=== PATIENT | male | born 1955 | race Caucasian/White ===

== ENCOUNTER 2016-07-17 00:03 | Inpatient (IN) | payer BC, MEDICARE, OTHER, SELFPAY ==
[~2016-07-17] VITALS: Ht 193 cm; Wt 90.0 kg
[2016-07-17] MEDS ORDERED: ONDANSETRON 2MG/ML, 2ML IVPush ONE (00:30)
[2016-07-17] MEDS ORDERED: PLEASE ENTER ALLERGIES MC SCH ×2 (01:00)
[2016-07-17] MEDS ORDERED: MORPHINE SULFATE 4 MG/ML, 1ML ONE ×2 (01:00→01:22)
[2016-07-17] MEDS ORDERED: ONDANSETRON 2MG/ML, 2ML ONE ×2 (01:00→15:36)
[2016-07-17] MEDS: MORPHINE SULFATE 4 MG/ML, 1ML IVPush PRN ×2 (01:02→01:26)
[2016-07-17 01:42] LABS: BLOOD UREA NITROGEN 5 mg/dL (7-18)
[2016-07-17] MEDS ORDERED: HYDROmorphone 1 MG/ML, 1ML IV ONE (02:00)
[2016-07-17] MEDS ORDERED: HYDROmorphone 1 MG/ML, 1ML ONE ×3 (02:00→13:57)
[2016-07-17] MEDS ORDERED: DULO30CA2 PO (02:09)
[2016-07-17] MEDS ORDERED: OXYC15TA75 PO (02:09)
[2016-07-17] MEDS ORDERED: OXYC30TA66 PO (02:09)
[2016-07-17] MEDS ORDERED: METO25TA35 PO (02:09)
[2016-07-17] MEDS ORDERED: ZOLP-413 PO (02:09)
[2016-07-17] MEDS ORDERED: LORazepam 2 MG/ML, 1ML IVPush PRN (03:30)
[2016-07-17] MEDS ORDERED: ONDANSETRON 2MG/ML, 2ML IVPush PRN ×2 (03:30→13:30)
[2016-07-17] MEDS ORDERED: OXYcodone IR 5MG TABLET PO PRN (03:30)
[2016-07-17] MEDS: morphine SULFATE 10 MG/ML, 1ML IVPush PRN ×6 (03:56→18:22)
[2016-07-17] MEDS: SODIUM CHLORIDE 0.9% 1,000 ML IV SCH ×3 (04:25→21:31)
[2016-07-17] MEDS: POTASSIUM CHLORIDE 20 MEQ, MAGNESIUM SULFATE 2 GM, THIAMINE 100 MG, MVI ADULT 10 ML, FO... IV SCH ×2 (04:25→14:44)
[2016-07-17 04:27] VITALS: BP 134/89
[2016-07-17] MEDS: FAMOTIDINE 20 MG/2 ML IVPush SCH ×2 (08:08→23:02)
[2016-07-17] MEDS: METOPROLOL TARTRATE 25 MG TABLET PO SCH ×2 (08:08→23:02)
[2016-07-17] MEDS: DULOXETINE 30 MG CAPSULE.DR PO SCH (08:08)
[2016-07-17] MEDS: OxyconTIN ER 10 MG TAB.ER PO SCH ×2 (08:08→21:23)
[2016-07-17 08:10] VITALS: BP 133/83
[2016-07-17] MEDS ORDERED: FENTANYL PF 250 MCG/5ML ONE (12:39)
[2016-07-17] MEDS ORDERED: FENTANYL PF 100 MCG/2ML ONE ×2 (13:25→14:16)
[2016-07-17] MEDS ORDERED: OXYcodone 5 MG/5 ML ORAL.SOL UDC ONE (13:25)
[2016-07-17] MEDS ORDERED: LORazepam 2 MG/ML, 1ML ONE (13:26)
[2016-07-17] MEDS: FENTANYL PF 100 MCG/2ML IV PRN ×4 (13:28→14:20)
[2016-07-17] MEDS ORDERED: PROMETHAZINE 25 MG/ML, 1ML IV PRN (13:30)
[2016-07-17] MEDS ORDERED: MEPERIDINE/PF 25MG/0.5ML IVPush PRN (13:30)
[2016-07-17] MEDS ORDERED: hydrALAzine 20 MG/ML, 1ML IV PRN (13:30)
[2016-07-17] MEDS ORDERED: OXYcodone 5 MG/5 ML ORAL.SOL UDC PO PRN (13:30)
[2016-07-17] MEDS ORDERED: LABETALOL 5MG/ML, 20ML IV PRN (13:30)
[2016-07-17] MEDS: HYDROmorphone 1 MG/ML, 1ML IV PRN ×4 (13:36→14:10)
[2016-07-17 14:45] VITALS: BP 142/77
[2016-07-17] MEDS ORDERED: ROCURONIUM 10 MG/ML ONE (15:36)
[2016-07-17] MEDS ORDERED: PROPOFOL 10 MG/ML, 20ML ONE (15:36)
[2016-07-17] MEDS ORDERED: DEXAMETHASONE 4 MG/ML, 1ML ONE (15:36)
[2016-07-17] MEDS ORDERED: SUCCINYLCHOLINE 20 MG/ML, 10ML ONE (15:36)
[2016-07-17] MEDS ORDERED: CEFAZOLIN 1,000 MG ONE (15:36)
[2016-07-17] MEDS ORDERED: ONDANSETRON 2MG/ML, 2ML IV PRN (19:30)
[2016-07-17] MEDS ORDERED: OXYcodone/APAP 5/325MG TABLET PO PRN (19:30)
[2016-07-17] MEDS ORDERED: HYDROcodone/APAP 7.5-325MG/15ML UDC PO PRN (19:30)
[2016-07-17] MEDS ORDERED: HYDROmorphone 1 MG/ML, 1ML IV PRN (19:30)
[2016-07-17] MEDS: KETOROLAC 30 MG/1 ML IV SCH (19:49)
[2016-07-17] MEDS ORDERED: ZOLPIDEM 5MG TABLET PO PRN (20:00)
[2016-07-17 20:09] VITALS: BP 131/91
[2016-07-17] MEDS: CEFAZOLIN PMX 2GM/50ML 50 ML IVPB SCH (20:27)
[2016-07-17] MEDS: SODIUM CHLORIDE FLUSH 10ML SYR IVF SCH (21:00)
[2016-07-17] MEDS: DOCUSATE 100 MG CAPSULE PO SCH (21:23)
[2016-07-18 01:43] VITALS: BP 103/58
[2016-07-18] MEDS: KETOROLAC 30 MG/1 ML IV SCH ×2 (03:24→11:32)
[2016-07-18] MEDS: CEFAZOLIN PMX 2GM/50ML 50 ML IVPB SCH (04:32)
[2016-07-18 05:24] LABS: BLOOD UREA NITROGEN 9 mg/dL (7-18)
[2016-07-18] MEDS ORDERED: ENOXAPARIN 40 MG/0.4 ML SQ SCH (06:00)
[2016-07-18 07:35] VITALS: BP 110/74
[2016-07-18] MEDS: METOPROLOL TARTRATE 25 MG TABLET PO SCH (08:38)
[2016-07-18] MEDS: FAMOTIDINE 20 MG/2 ML IVPush SCH (08:38)
[2016-07-18] MEDS: OxyconTIN ER 10 MG TAB.ER PO SCH (08:38)
[2016-07-18] MEDS: DULOXETINE 30 MG CAPSULE.DR PO SCH (08:38)
[2016-07-18] MEDS: DOCUSATE 100 MG CAPSULE PO SCH (08:42)
[2016-07-18] MEDS: SODIUM CHLORIDE FLUSH 10ML SYR IVF SCH (08:43)
[2016-07-18] MEDS ORDERED: ERGOCALCIFEROL 50,000 UNIT CAPSULE PO SCH (11:00)
[2016-07-18] MEDS ORDERED: OXYcodone IR 5MG TABLET PO PRN (12:00)
[2016-07-18 12:25] VITALS: BP 102/63
[2016-07-18] MEDS ORDERED: ERGO500017 PO (12:27)
[2016-07-18] MEDS ORDERED: POTASSIUM CHLORIDE 20 MEQ, MAGNESIUM SULFATE 1 GM, FOLIC ACID 1 MG, THIAMINE 100 MG, MV... IV SCH (15:00)
== END 2016-07-18 13:10 | disposition home or self-care (01) | DRG 481 ==
LOC: ED 01:21 → EDIP 01:22 → ED 01:53 → 5SO 02:53 → 4NOR 19:03
PROVIDERS: ADMIT Internal Medicine
PROC: 0QS736Z Reposition Left Upper Femur with Intramedullary Internal Fixation Device, Percutaneous Approach (ICD-10-PCS; principal; 2016-07-17 13:00)
DX: S72.142A Displaced intertrochanteric fracture of left femur, initial encounter for closed fracture (principal); D68.9 Coagulation defect, unspecified; D53.9 Nutritional anemia, unspecified; D72.829 Elevated white blood cell count, unspecified; E55.9 Vitamin D deficiency, unspecified; F10.229 Alcohol dependence with intoxication, unspecified; F17.210 Nicotine dependence, cigarettes, uncomplicated; G89.4 Chronic pain syndrome; W18.30XA Fall on same level, unspecified, initial encounter; I11.9 Hypertensive heart disease without heart failure; F41.9 Anxiety disorder, unspecified; R26.2 Difficulty in walking, not elsewhere classified; Y90.0 Blood alcohol level of less than 20 mg/100 ml; Z79.891 Long term (current) use of opiate analgesic; Z79.899 Other long term (current) drug therapy; Y93.89 Activity, other specified; Y92.89 Other specified places as the place of occurrence of the external cause; Y99.8 Other external cause status
CPT/HCPCS: 36415; 71010; 76000; 80048; 80307; 82040; 82306; 82607; 82746; 83735; 84100; 84443; 85025; 85610; 93005; 96374; 96375; C1713; J0690; J1100; J1170; J1650; J1885; J2405; J2704; J3010; J3411; J3475; J3480; J7042; J0330; J2060; J2270; J7030; S0028

== ENCOUNTER 2016-09-25 15:05 | Inpatient (IN) | payer MEDICARE ==
[~2016-09-25] VITALS: Ht 193 cm; Wt 81.3 kg
[~2016-09-25 15:05] MED LIST changes: -APIX5TAB PO; -FLUT1AER INH; -MULT-484 PO; -SENN1TAB7 PO
[2016-09-25] MEDS ORDERED: SODIUM CHLORIDE FLUSH 10ML SYR IVF ONE (15:30)
[2016-09-25] MEDS ORDERED: HEPARIN 5,000 UNITS/ML, 1ML ONE (15:40)
[2016-09-25] MEDS ORDERED: HEPARIN 25,000 UNITS/500ML PMX 500 ML ONE (15:40)
[2016-09-25] MEDS: HEPARIN 25,000 UNITS/500ML PMX 500 ML IV PRN (15:53)
[2016-09-25] MEDS ORDERED: HEPARIN 5,000 UNITS/ML, 1ML IV ONE (16:00)
[2016-09-25 16:03] LABS: HEMATOCRIT 52.2 % (39.2-51.8); WHITE BLOOD COUNT 4.6 x10^3/uL (3.4-10)
[2016-09-25 16:06] LABS: ANTI-Xa-UNFRACTIONATED HEP 0.06 IU/mL (0.30-0.70)
[2016-09-25 16:11] LABS: BLOOD UREA NITROGEN 6 mg/dL (7-18)
[2016-09-25 16:15] LABS: IS PT STATUS REG ER OR PRE ER? YES
[2016-09-25] MEDS ORDERED: POTASSIUM CHLORIDE 10% 40 MEQ/30 ML UDC PO ONE (16:30)
[2016-09-25] MEDS ORDERED: ACETAMINOPHEN 325 MG TABLET PO PRN (19:30)
[2016-09-25] MEDS ORDERED: BISACODYL 10 MG SUPP PR PRN (19:30)
[2016-09-25] MEDS ORDERED: ONDANSETRON 2MG/ML, 2ML IVPush PRN (19:30)
[2016-09-25] MEDS: NICOTINE 7 MG/24 HR PATCH.TD24 TD SCH (19:30)
[2016-09-25] MEDS ORDERED: POLYETHYLENE GLYCOL 17 GM PACKET PO PRN (19:30)
[2016-09-25] MEDS ORDERED: hydrALAzine 20 MG/ML, 1ML IVPush PRN (19:30)
[2016-09-25] MEDS ORDERED: ERGOCALCIFEROL 50,000 UNIT CAPSULE PO SCH (19:30)
[2016-09-25] MEDS ORDERED: ENALAPRILAT 1.25 MG/ML, 2ML IVPush PRN ×2 (19:30→19:31)
[2016-09-25] MEDS ORDERED: LORazepam 2 MG/ML, 1ML IV PRN ×5 (20:00)
[2016-09-25] MEDS: FLUTICASONE/VILANTEROL 100-25MCG/INH INH SCH (20:00)
[2016-09-25] MEDS ORDERED: LORazepam 0.5MG TABLET PO PRN (20:00)
[2016-09-25] MEDS ORDERED: LORazepam 1MG TABLET PO PRN ×4 (20:00)
[2016-09-25] MEDS: OxyconTIN ER 15 MG TAB.ER PO SCH (21:00)
[2016-09-25] MEDS: OXYcodone IR 5MG TABLET PO PRN (21:33)
[2016-09-25] MEDS: SODIUM CHLORIDE 0.9% 1,000 ML IV SCH (21:33)
[2016-09-25] MEDS: METOPROLOL TARTRATE 25 MG TABLET PO SCH (21:33)
[2016-09-25] MEDS: ZOLPIDEM 5MG TABLET PO SCH (21:33)
[2016-09-25 22:49] VITALS: BP 129/77
[2016-09-25 22:55] LABS: IS PT STATUS REG ER OR PRE ER? NO
[2016-09-25] MEDS: HEPARIN 5,000 UNITS/ML, 1ML IV PRN (23:25)
[2016-09-26 01:06] VITALS: BP 133/77
[2016-09-26 05:55] LABS: HEMATOCRIT 45.6 % (39.2-51.8); HEMOGLOBIN 14.8 g/dL (13.7-18.0); WHITE BLOOD COUNT 5.5 x10^3/uL (3.4-10)
[2016-09-26 06:14] LABS: ASPARTATE AMINO TRANSFERASE 20 U/L (15-37); BLOOD UREA NITROGEN 6 mg/dL (7-18)
[2016-09-26 06:15] LABS: IS PT STATUS REG ER OR PRE ER? NO
[2016-09-26] MEDS: HEPARIN 5,000 UNITS/ML, 1ML IV PRN ×3 (06:28→22:35)
[2016-09-26] MEDS: SODIUM CHLORIDE 0.9% 1,000 ML IV SCH (08:21)
[2016-09-26 09:00] VITALS: BP 109/67
[2016-09-26] MEDS: OxyconTIN ER 15 MG TAB.ER PO SCH ×2 (09:00→21:00)
[2016-09-26] MEDS: SENNA/DOCUSATE TABLET PO SCH (09:00)
[2016-09-26] MEDS: MULTIVITAMINS/MINERALS TABLET PO SCH (10:31)
[2016-09-26] MEDS: METOPROLOL TARTRATE 25 MG TABLET PO SCH ×2 (10:32→21:12)
[2016-09-26] MEDS: OXYcodone IR 5MG TABLET PO PRN ×4 (10:32→22:35)
[2016-09-26] MEDS: DULOXETINE 30 MG CAPSULE.DR PO SCH (10:32)
[2016-09-26 14:45] VITALS: BP 108/68
[2016-09-26] MEDS: HEPARIN 25,000 UNITS/500ML PMX 500 ML IV PRN (14:47)
[2016-09-26] MEDS: morphine SULFATE 10 MG/ML, 1ML IVPush PRN ×3 (15:16→21:12)
[2016-09-26] MEDS: [UNRECOGNIZED DRUG - REMARK] MC SCH ×2 (18:00→21:14)
[2016-09-26] MEDS: NICOTINE 7 MG/24 HR PATCH.TD24 TD SCH (18:19)
[2016-09-26] MEDS ORDERED: HEPARIN 25,000 UNITS/500ML PMX 500 ML IV PRN (19:30)
[2016-09-26 20:00] VITALS: BP 130/78
[2016-09-26] MEDS: FLUTICASONE/VILANTEROL 100-25MCG/INH INH SCH (20:00)
[2016-09-26] MEDS: ZOLPIDEM 5MG TABLET PO SCH (21:12)
[2016-09-27 02:00] VITALS: BP 139/83
[2016-09-27] MEDS: morphine SULFATE 10 MG/ML, 1ML IVPush PRN ×4 (05:04→14:54)
[2016-09-27] MEDS: OXYcodone IR 5MG TABLET PO PRN ×5 (05:04→17:14)
[2016-09-27 05:21] LABS: HEMATOCRIT 45.9 % (39.2-51.8); WHITE BLOOD COUNT 6.3 x10^3/uL (3.4-10)
[2016-09-27] MEDS: HEPARIN 25,000 UNITS/500ML PMX 500 ML IV PRN (07:30)
[2016-09-27 09:00] VITALS: BP 119/73
[2016-09-27] MEDS: MULTIVITAMINS/MINERALS TABLET PO SCH (09:00)
[2016-09-27] MEDS: METOPROLOL TARTRATE 25 MG TABLET PO SCH (09:00)
[2016-09-27] MEDS: DULOXETINE 30 MG CAPSULE.DR PO SCH (09:00)
[2016-09-27] MEDS: OxyconTIN ER 15 MG TAB.ER PO SCH (09:03)
[2016-09-27] MEDS: SENNA/DOCUSATE TABLET PO SCH (09:03)
[2016-09-27] MEDS: HEPARIN 5,000 UNITS/ML, 1ML IV PRN (11:17)
[2016-09-27] MEDS ORDERED: MULT-484 PO (16:39)
[2016-09-27] MEDS ORDERED: SENN1TAB7 PO (16:39)
[2016-09-27] MEDS ORDERED: APIX5TAB PO (16:39)
[2016-09-27] MEDS ORDERED: FLUT1AER INH (16:39)
[2016-09-27] MEDS ORDERED: APIXABAN 5 MG TABLET PO ONE ×2 (17:00)
== END 2016-09-27 18:23 | disposition home or self-care (01) | DRG 299 ==
LOC: ED 15:51 → EDIP 16:14 → 5SO 19:07
PROVIDERS: ADMIT Internal Medicine; ATTEND Internal Medicine
DX: I82.442 Acute embolism and thrombosis of left tibial vein (principal); I26.99 Other pulmonary embolism without acute cor pulmonale; E44.0 Moderate protein-calorie malnutrition; E87.6 Hypokalemia; I77.819 Aortic ectasia, unspecified site; I10 Essential (primary) hypertension; E55.9 Vitamin D deficiency, unspecified; F17.210 Nicotine dependence, cigarettes, uncomplicated; G89.29 Other chronic pain; Z96.649 Presence of unspecified artificial hip joint; F10.20 Alcohol dependence, uncomplicated; F41.9 Anxiety disorder, unspecified; M54.9 Dorsalgia, unspecified; Z79.899 Other long term (current) drug therapy; Z98.1 Arthrodesis status; Z91.81 History of falling; Z71.6 Tobacco abuse counseling; Z68.21 Body mass index [BMI] 21.0-21.9, adult
CPT/HCPCS: 36415; 80048; 80053; 80061; 81003; 82040; 83036; 83735; 84439; 84443; 84484; 85025; 85520; 85610; 85730; 93005; 93306; 93970; J1644; J2270; J7030

== ENCOUNTER → 2016-09-25 | Outpatient (CLI) | payer MEDICARE ==
[~2016-09-25] MED LIST: APIX5TAB PO; DULO30CA2 PO; ERGO500017 PO; FLUT1AER INH; METO25TA35 PO; MULT-484 PO; OXYC15TA75 PO; OXYC30TA66 PO; SENN1TAB7 PO; ZOLP-413 PO
== END | disposition home or self-care (01) ==
LOC: RAD 12:22
PROVIDERS: ATTEND Nurse Practitioner Family
DX: I26.99 Other pulmonary embolism without acute cor pulmonale (principal); I77.819 Aortic ectasia, unspecified site; I89.8 Other specified noninfective disorders of lymphatic vessels and lymph nodes
CPT/HCPCS: 71260

== ENCOUNTER → 2017-02-27 | Outpatient (CLI) | payer MEDICARE ==
[~2017-02-27] MED LIST changes: +APIX5TAB PO; +FLUT1AER INH; +MULT-484 PO; +SENN1TAB7 PO
== END ==
LOC: RAD 10:03
PROVIDERS: ATTEND Internal Medicine Cardiovascular Disease
DX: I82.402 Acute embolism and thrombosis of unspecified deep veins of left lower extremity (principal); R60.0 Localized edema; F17.200 Nicotine dependence, unspecified, uncomplicated
CPT/HCPCS: 93978

== ENCOUNTER 2018-04-03 09:36 | Emergency (ER) | payer MEDICARE ==
[~2018-04-03] VITALS: Ht 193 cm; Wt 81.8 kg
[~2018-04-03 09:36] MED LIST changes: +ASPI-496 PO; +CITA20TA9 PO; +ENOX80SY4 SQ; +FOLI-17 PO; +GABA300C10 PO; +MELO7.5T31 PO; +MULT1TAB60 PO; -SENN1TAB7 PO; +SENN1TAB8 PO; +THIA100T67 PO; +WARF7.5T PO-COUM
[2018-04-03] MEDS ORDERED: SODIUM CHLORIDE 0.9% 1,000ML IVBOLUS ONE (10:00)
[2018-04-03] MEDS ORDERED: ONDANSETRON 2MG/ML, 2ML IVPush ONE (10:00)
[2018-04-03] MEDS ORDERED: FAMOTIDINE 20 MG/2 ML IVP ONE (10:00)
[2018-04-03] MEDS ORDERED: LORazepam 2 MG/ML, 1ML IVPush ONE (10:00)
[2018-04-03] MEDS ORDERED: ONDANSETRON 2MG/ML, 2ML ONE (10:07)
[2018-04-03] MEDS ORDERED: LORazepam 2 MG/ML, 1ML ONE (10:07)
[2018-04-03] MEDS ORDERED: FAMOTIDINE 20 MG/2 ML ONE (10:08)
[2018-04-03 10:29] LABS: ALANINE AMINOTRANSFERASE 17 U/L (12-78); ALBUMIN 3.1 g/dL (3.4-5.0); ANION GAP 17 mmol/L (5-15); CALCIUM 8.5 mg/dL (8.5-10.1); CHLORIDE 99 mmol/L (98-107); MEAN CORPUSCULAR HEMOGLOBIN 34.1 pg (27.5-34.5); MEAN CORPUSCULAR HGB CONC 33.9 g/dL (33.2-36.2); MEAN CORPUSCULAR VOLUME 100.5 fL (81-97); MEAN PLATELET VOLUME 8.3 fL (7.4-10.4); PLATELET COUNT 142 x10^3/uL (130-400); RED BLOOD COUNT 5.24 x10^6/uL (4.38-5.82); RED CELL DISTRIBUTION WIDTH 15.8 % (9.4-14.8)
[2018-04-03 10:31] LABS: ALKALINE PHOSPHATASE 129 U/L (45-117); BILIRUBIN,TOTAL 1.6 mg/dL (0.2-1.0); TOTAL PROTEIN 5.9 g/dL (6.4-8.2)
[2018-04-03 10:59] LABS: BASOPHILS # (AUTO) 0.01 x10^3/uL (0-0.1); BASOPHILS % (AUTO) 0 % (0-1); EOSINOPHILS % (AUTO) 0 % (1-7); LYMPHOCYTES # (AUTO) 0.96 x10^3/uL (1-3.4); LYMPHOCYTES % (AUTO) 14 % (22-44); MD SCAN; MONOCYTES # (AUTO) 0.66 x10^3/uL (0.2-0.8); MONOCYTES % (AUTO) 10 % (2-9); NEUTROPHILS # (AUTO) 5.35 x10^3/uL (1.8-6.8); NEUTROPHILS % (AUTO) 77 % (42-75)
--- NOTE | 2018-04-03 11:19 | NUR ---
LATE NOTE ENTRY FOR 0939: Pt presents to ED by EMS with c/o n/v/d for two days, black coffee ground emesis one time this morning, and "black coffee ground stools one time this morning." Pt states, " I have never had withdrawal symptoms, but I had some shakiness last night. My last drink was two days ago." EMS provided pt with 4 mg of ODT Zofran and 500 mL of NS in 18 g PIV placed in right ac prior to arrival to ED. Pt states, "I was really sweaty last night as well." NADN. Pt resting on gurney connected to NIBP and continous pulse ox. All safety measures in place. Pt aware of need of stool sample. Pt unable to provide sample at this time.
--- NOTE | 2018-04-03 11:21 | NUR ---
LATE NOTE ENTRY FOR 1023: Provided pt fluids and medicaitons per [facility]. Pt appreciative.
[2018-04-03] MEDS ORDERED: ZOLP-413 PO (12:06)
[2018-04-03] MEDS ORDERED: morphine (12:06)
--- NOTE | 2018-04-03 12:09 | NUR ---
Pt resting on [employer] watching TV. ELLEN. Pt denies nausea or vomitting at this time.
[2018-04-03 12:20] VITALS: BP 98/60
== END 2018-04-03 12:22 | disposition home or self-care (01) ==
LOC: ED 11:23
DX: A08.4 Viral intestinal infection, unspecified (principal); I10 Essential (primary) hypertension; F17.200 Nicotine dependence, unspecified, uncomplicated; Z86.718 Personal history of other venous thrombosis and embolism; Z72.9 Problem related to lifestyle, unspecified
CPT/HCPCS: 36415; 80053; 83690; 85025; 96361; 96374; 96375; 99283; J2060; J2405; J3490; J7030

== ENCOUNTER 2018-09-25 23:07 | Inpatient (IN) | payer MEDICARE ==
[~2018-09-25] VITALS: Ht 182.9 cm; Wt 92.4 kg
[2018-10-01 11:57] VITALS: BP 130/84
== END 2018-10-01 13:15 | disposition home health service (06) | DRG 480 ==
LOC: ED 09-26 02:30 → EDIP 09-26 03:10 → CCU 09-26 12:35 → 4WST 09-27 10:49 → 4NOR 09-29 17:34 → DCLOUNGE 10-01 13:00
PROVIDERS: ADMIT Internal Medicine; ATTEND Internal Medicine
PROC: 0QS636Z Reposition Right Upper Femur with Intramedullary Internal Fixation Device, Percutaneous Approach (ICD-10-PCS; 2018-09-26)
PROC: 30233N1 Transfusion of Nonautologous Red Blood Cells into Peripheral Vein, Percutaneous Approach (ICD-10-PCS; 2018-09-26)
PROC: 06H03DZ Insertion of Intraluminal Device into Inferior Vena Cava, Percutaneous Approach (ICD-10-PCS; principal; 2018-09-30)
PROC: B5191ZA Fluoroscopy of Inferior Vena Cava using Low Osmolar Contrast, Guidance (ICD-10-PCS; 2018-09-30)
PROC: B549ZZA Ultrasonography of Inferior Vena Cava, Guidance (ICD-10-PCS; 2018-09-30)
DX: S72.21XA Displaced subtrochanteric fracture of right femur, initial encounter for closed fracture (principal); T79.4XXA Traumatic shock, initial encounter; D62 Acute posthemorrhagic anemia; I82.403 Acute embolism and thrombosis of unspecified deep veins of lower extremity, bilateral; I82.421 Acute embolism and thrombosis of right iliac vein; I82.411 Acute embolism and thrombosis of right femoral vein; D50.9 Iron deficiency anemia, unspecified; D69.6 Thrombocytopenia, unspecified; E83.42 Hypomagnesemia; E87.6 Hypokalemia; F10.20 Alcohol dependence, uncomplicated; G89.29 Other chronic pain; G89.11 Acute pain due to trauma; I10 Essential (primary) hypertension; F12.10 Cannabis abuse, uncomplicated; K59.03 Drug induced constipation; S70.11XA Contusion of right thigh, initial encounter; W18.39XA Other fall on same level, initial encounter; S72.121A Displaced fracture of lesser trochanter of right femur, initial encounter for closed fracture; T40.605A Adverse effect of unspecified narcotics, initial encounter; Z72.0 Tobacco use; Z79.01 Long term (current) use of anticoagulants; Z71.41 Alcohol abuse counseling and surveillance of alcoholic; Z71.6 Tobacco abuse counseling; Y93.89 Activity, other specified; Y92.89 Other specified places as the place of occurrence of the external cause; Y99.8 Other external cause status; Z86.711 Personal history of pulmonary embolism; Z95.828 Presence of other vascular implants and grafts
CPT/HCPCS: 36415; 36430; 37191; 74177; 76000; 76937; 80048; 80053; 80307; 81003; 82040; 83540; 83550; 83735; 84100; 85025; 85610; 85730; 86850; 86900; 86923; 87081; 93005; 96361; 96374; 99156; 99157; C1713; C1880; G0378; J0690; J1100; J1885; J2250; J2405; J2704; J3010; J3411; Q9967; C1932; J0330; J2270; J2370; J3475; J7030; P9016